=== PATIENT | male | born 1980 | race Caucasian/White ===

== ENCOUNTER 2024-06-25 15:56 | Emergency (ER) | payer OTHER ==
[2024-06-25 16:21] VITALS: BP 135/68; PULSE 68; RESP 18; TEMP 97.4; O2SAT 95
--- NOTE | 2024-06-25 17:50 | ERPHSYRPT ---
- History of Present Illness Time Seen by Provider: 06/25/24 17:20 Source: patient Exam Limitations: no limitations Patient Subjective Stated Complaint: PT WAS AT WORK AND WORKING ON A TREE WHEN HES ROSIE TOOK OFF WHILE HE WAS HOLDING A ROPE. CO PAIN TO BOTH HANDS Triage Nursing Assessment: PT ALERT, WALKED IN, RESP EASY SKIN W.Veronica.P. HAS LOAIZA TO HANDS WITH ABRASIONS TO BOTH WRISTS, NO ACTIVE BLEEDING Physician History: Pt states about 2 hours ago at home he was holding onto a rope and suffered a rope burn with resultant pain in his hands and left wrist. Hx Tetanus, Diphtheria Vaccination/Date Given: Yes Hx Influenza Vaccination/Date Given: No Hx Pneumococcal Vaccination/Date Given: No Immunizations Up to Date: Yes Travel Risk - International Travel Have you traveled outside of the country in past 3 weeks: No - Emerging Infectious Disease Are you exhibiting symptoms associated with any current EIDs: No - Review of Systems Musculoskeletal: Other (pain in hands and left wrist) - Past Medical History Pertinent Past Medical History: Yes Other Medical History: SEPSIS - Past Surgical History Musculoskeletal: Amputation Other Surgical History: BILAT JOE AMUTATION - Social History Smoking Status: Current every day smoker How long have you smoked: 1 Exposure to second hand smoke: No Drug Use: none - Social Determinants of Health Will the patient participate in the screening: Declined to provide - Nursing Vital Signs Nursing Vital Signs: Initial Vital Signs Temperature 97.4 F 06/25/24 16:20 Pulse Rate 68 06/25/24 16:20 Respiratory Rate 18 06/25/24 16:20 Blood Pressure 135/68 06/25/24 16:20 O2 Sat by Pulse Oximetry 95 06/25/24 16:20 Pain Scale Pain Intensity 7 - Physical Exam General Appearance: alert Shoulder Exam: normal ROM Elbow/Forearm Exam: normal ROM Wrist Exam: normal ROM, soft tissue tenderness (left wrist ) Hand Exam: soft tissue tenderness (both hands tender over palmar aspect with mild edema with decreased rom; abrasion to dorsal ulnar aspect of right hand and right wrist; good sensation of all digits of hands; abrasions to palmar surfaces of left hand.) Neuro/Tendon Exam: No sensory deficit Mental Status Exam: alert, cooperative SpO2 Interpretation: normal SpO2: 95 O2 Delivery: Room Air - Radiology Exams Right Hand X-ray Interpretation: Discussed w/ radiologist, No Fracture Left Hand X-ray Interpretation: Discussed w/ radiologist, No Fracture Left Wrist X-ray Interpretation: Discussed w/ radiologist, No Fracture Ordered Tests: Active Orders 24 hr Category Date Time Status HAND (MINIMUM 3 VIEWS) Stat Exams 06/25/24 17:51 Completed HAND (MINIMUM 3 VIEWS) Stat Exams 06/25/24 17:52 Completed WRIST (MIN 3 VIEWS) Stat Exams 06/25/24 17:51 Completed Medication Summary Discontinued Medications Generic Name Dose Route Start Last Admin Trade Name Martha PRN Reason Stop Dose Admin Hydrocodone Bitart/Acetaminophen 2 tab 06/25/24 17:52 06/25/24 17:56 Hydrocodone/Apap 5/325 1 Tab Tablet PO 06/25/24 17:53 2 tab STAT ONE Administration Hydrocodone Bitart/Acetaminophen Confirm 06/25/24 17:55 Hydrocodone/Apap 5/325 1 Tab Tablet Administered 06/25/24 17:56 Dose 2 tab .ROUTE .STK-MED ONE - Progress Progress: unchanged Counseled pt/family regarding: diagnosis, need for follow-up, rad results Medical Desision Making - Diagnostic Testing Diagnostic test were ordered, analyzed, and reviewed by me: Yes Radiological Interpretation: Discussed w/ radiologist - Departure Departure Disposition: AMA (ER staff stated pt walked out.) Clinical Impression: rope burn of palar aspect of hands, abrasions of right hand & right wrist Condition: Stable Critical Care Time: No Referrals: DOCTOR,NO FAMILY [Primary Care Provider] - Follow up/PCP as directed
[2024-06-25] MEDS ORDERED: NORCO 5/325 MG ONE (17:55)
[2024-06-25] MEDS: NORCO 5/325 MG PO ONE (17:56)
--- NOTE | 2024-06-25 19:30 | XRAY ---
Indication: Pain following injury. Comparison: None 3 view left hand obtained. No bony, articular, or soft tissue abnormalities.
--- NOTE | 2024-06-25 19:32 | XRAY ---
Indication: Pain following injury. Comparison: None 3 view right hand obtained. No bony, articular, or soft tissue abnormalities.
--- NOTE | 2024-06-25 19:32 | XRAY ---
Indication: Pain following injury. Comparison: None 3 view left wrist demonstrates incidental tiny subcortical cysts ulnar styloid. No other bony, articular, or soft tissue abnormalities.
== END 2024-06-25 21:30 | disposition left against medical advice (07) ==
LOC: ED 15:56
DX: M79.642 Pain in left hand (principal); M79.641 Pain in right hand; T23.052A Burn of unspecified degree of left palm, initial encounter; T23.051A Burn of unspecified degree of right palm, initial encounter
CPT/HCPCS: 73110; 73130; 99283; A9270-GY

== ENCOUNTER 2024-09-19 15:27 | Emergency (ER) | payer OTHER ==
--- NOTE | 2024-09-19 15:44 | ERPHSYRPT ---
- History of Present Illness Time Seen by Provider: 09/19/24 15:31 Source: patient Exam Limitations: no limitations Physician History: Pt states he has had constant sharp back pain since last night up to 10/10 in severity; denies fever, nausea, vomiting, abdominal pain, numbness, chest pain, shortness of air. Allergies/Adverse Reactions: No Known Drug Allergies Allergy (Verified 09/19/24 15:36) Home Medications: No Reportable Medications [No Reported Medications] 09/19/24 [History] Hx Tetanus, Diphtheria Vaccination/Date Given: Yes Hx Influenza Vaccination/Date Given: No Hx Pneumococcal Vaccination/Date Given: No Travel Risk - Emerging Infectious Disease Are you exhibiting symptoms associated with any current EIDs: No - Review of Systems Constitutional: No Fever Respiratory: No Dyspnea Cardiac: No Chest Pain Abdominal/Gastrointestinal: No Abdominal Pain, No Nausea, No Vomiting Musculoskeletal: Back Pain Neurological: No Headache - Past Medical History Pertinent Past Medical History: Yes Other Medical History: SEPSIS - Past Surgical History Musculoskeletal: Amputation Other Surgical History: BILAT JOE AMUTATION - Social History Smoking Status: Current every day smoker How long have you smoked: 1 Exposure to second hand smoke: No Drug Use: none - Social Determinants of Health Will the patient participate in the screening: Declined to provide - Nursing Vital Signs Nursing Vital Signs: Initial Vital Signs Temperature 96.7 F 09/19/24 15:37 Pulse Rate 51 L 09/19/24 15:37 Respiratory Rate 18 09/19/24 15:37 Blood Pressure 150/83 09/19/24 15:37 O2 Sat by Pulse Oximetry 94 L 09/19/24 15:37 Pain Scale Pain Intensity 10 - Physical Exam General Appearance: alert Eye Exam: eyes nml inspection Ears, Nose, Throat Exam: TMs normal, pharynx normal Neck Exam: normal inspection Respiratory Exam: lungs clear Cardiovascular Exam: normal heart sounds Gastrointestinal Exam: normal bowel sounds Back Exam: vertebral tenderness (mid thoracic to lower lumbar tenderness) Extremity Exam: other (bilateral forefoot amputee) Neurologic Exam: alert, cooperative Skin Exam: warm, dry - CT Exams Thoracic Spine CT Interpretation: Tele-radiologist Report (Mild degenerative changes of the thoracic spine. See rest of report.) Lumbar Spine CT Interpretation: Tele-radiologist Report (Mild degenerative change of the lumbar spine. No fractures. See rest of report.) Ordered Tests: Active Orders 24 hr Category Date Time Status LUMBAR SPINE W/O [CT] Stat Exams 09/19/24 15:39 Completed THORACIC SPINE W/O CONTRAST [CT] Stat Exams 09/19/24 15:39 Completed AMYLASE Stat Lab 09/19/24 16:11 Completed CBC W DIFF Stat Lab 09/19/24 16:11 Completed CMP Stat Lab 09/19/24 16:11 Completed LIPASE Stat Lab 09/19/24 16:11 Completed UA W/RFX UR CULTURE Stat Lab 09/19/24 16:24 Completed Medication Summary Discontinued Medications Generic Name Dose Route Start Last Admin Trade Name Freq PRN Reason Stop Dose Admin Hydrocodone Bitart/Acetaminophen 2 tab 09/19/24 15:40 09/19/24 16:15 Hydrocodone/Apap 5/325 1 Tab Tablet PO 09/19/24 15:41 2 tab STAT ONE Administration Hydrocodone Bitart/Acetaminophen Confirm 09/19/24 15:54 Hydrocodone/Apap 5/325 1 Tab Tablet Administered 09/19/24 15:55 Dose 2 tab .ROUTE .STK-MED ONE Hydrocodone Bitart/Acetaminophen 2 tab 09/19/24 17:24 Hydrocodone/Apap 5/325 1 Tab Tablet PO 09/19/24 17:25 SENT HOME W/ PATIENT ONE Hydrocodone Bitart/Acetaminophen Confirm 09/19/24 17:28 Hydrocodone/Apap 5/325 1 Tab Tablet Administered 09/19/24 17:29 Dose 2 tab .ROUTE .STK-MED ONE Lab/Rad Data: Laboratory Result Diagrams 09/19/24 16:11 09/19/24 16:11 Laboratory Results 09/19/24 09/19/24 09/19/24 Range/Units 16:24 16:11 16:11 WBC (4.23-9.07) x10^3/uL RBC (4.63-6.08) x10^6/uL Hgb (13.7-17.5) g/dL Hct (40.1-51.0) % MCV (79.0-92.2) fL MCH (25.7-32.2) pg MCHC (32.3-36.5) g/dL RDW (11.6-14.4) % Plt Count (163-337) x10^3/uL MPV (9.4-12.4) fL Gran % (34.0-67.9) % Immature Gran % (Auto) (0.001-0.429) % Nucleat RBC Rel Count (0.00-0.2) % Eos # (Auto) (0.04-0.54) x10^3/uL Immature Gran # (Auto) (0.001-0.031) x10^3u/L Absolute Lymphs (auto) (1.32-3.57) x10^3/uL Absolute Monos (auto) (0.30-0.82) x10^3/uL Absolute Nucleated RBC (0.00-0.012) x10^3u/L Lymphocytes % (21.8-53.1) % Monocytes % (5.3-12.2) % Eosinophils % (0.8-7.0) % Basophils % (0.2-1.2) % Absolute Granulocytes (1.78-5.38) x10^3/uL Basophils # (0.01-0.08) x10^3/uL Sodium 141 (135-145) mmol/L Potassium 4.0 (3.5-5.1) mmol/L Chloride 112 H (98-107) mmol/L Carbon Dioxide 24 (22-30) mmol/L Anion Gap 8.6 (5-15) MEQ/L BUN 11 (9-20) mg/dL Creatinine 1.21 (0.66-1.25) mg/dL Estimated GFR 74.8 ML/MIN Glucose 98 (74-106) mg/dL Calcium 9.8 (8.4-10.2) mg/dL Total Bilirubin 0.30 (0.2-1.3) mg/dL AST 25 (17-59) U/L ALT 21 (0-50) U/L Alkaline Phosphatase 59 (38-126) U/L Serum Total Protein 6.5 (6.3-8.2) g/dL Albumin 3.9 (3.5-5.0) g/dL Amylase 58 (30-110) U/L Lipase 36 (23-300) U/L Urine Color Yellow (Yellow) Urine Appearance Clear (Clear) Urine pH 6.5 (4.6-8.0) Ur Specific [place] 1.025 (1.005-1.030) Urine Protein Negative (Negative) Urine Glucose (UA) Negative (Negative) mg/dL Urine Ketones Trace A (Negative) Urine Blood Negative (Negative) Urine Nitrite Negative (Negative) Urine Bilirubin Negative (Negative) Urine Urobilinogen 1.0 A (0.2) mg/dL Ur Leukocyte Esterase Negative (Negative) U Hyaline Cast (Auto) NONE SEEN (0-2) /LPF Urine Microscopic RBC 0-2 (0-5) /HPF Urine Microscopic WBC 0-2 (0-5) /HPF Ur Epithelial Cells None Seen (None Seen) /HPF Urine Bacteria None Seen (None Seen) /HPF Urine Culture Reflexed NO (NO) 09/19/24 Range/Units 16:11 WBC 7.7 (4.23-9.07) x10^3/uL RBC 4.71 (4.63-6.08) x10^6/uL Hgb 14.8 (13.7-17.5) g/dL Hct 43.4 (40.1-51.0) % MCV 92.1 (79.0-92.2) fL MCH 31.4 (25.7-32.2) pg MCHC 34.1 (32.3-36.5) g/dL RDW 13.3 (11.6-14.4) % Plt Count 175 (163-337) x10^3/uL MPV 9.9 (9.4-12.4) fL Gran % 47.9 (34.0-67.9) % Immature Gran % (Auto) 0.3 (0.001-0.429) % Nucleat RBC Rel Count 0.0 (0.00-0.2) % Eos # (Auto) 0.47 (0.04-0.54) x10^3/uL Immature Gran # (Auto) 0.02 (0.001-0.031) x10^3u/L Absolute Lymphs (auto) 2.90 (1.32-3.57) x10^3/uL Absolute Monos (auto) 0.54 (0.30-0.82) x10^3/uL Absolute Nucleated RBC 0.00 (0.00-0.012) x10^3u/L Lymphocytes % 37.7 (21.8-53.1) % Monocytes % 7.0 (5.3-12.2) % Eosinophils % 6.1 (0.8-7.0) % Basophils % 1.0 (0.2-1.2) % Absolute Granulocytes 3.68 (1.78-5.38) x10^3/uL Basophils # 0.08 (0.01-0.08) x10^3/uL Sodium (135-145) mmol/L Potassium (3.5-5.1) mmol/L Chloride (98-107) mmol/L Carbon Dioxide (22-30) mmol/L Anion Gap (5-15) MEQ/L BUN (9-20) mg/dL Creatinine (0.66-1.25) mg/dL Estimated GFR ML/MIN Glucose (74-106) mg/dL Calcium (8.4-10.2) mg/dL Total Bilirubin (0.2-1.3) mg/dL AST (17-59) U/L ALT (0-50) U/L Alkaline Phosphatase (38-126) U/L Serum Total Protein (6.3-8.2) g/dL Albumin (3.5-5.0) g/dL Amylase (30-110) U/L Lipase (23-300) U/L Urine Color (Yellow) Urine Appearance (Clear) Urine pH (4.6-8.0) Ur Specific [place] (1.005-1.030) Urine Protein (Negative) Urine Glucose (UA) (Negative) mg/dL Urine Ketones (Negative) Urine Blood (Negative) Urine Nitrite (Negative) Urine Bilirubin (Negative) Urine Urobilinogen (0.2) mg/dL Ur Leukocyte Esterase (Negative) U Hyaline Cast (Auto) (0-2) /LPF Urine Microscopic RBC (0-5) /HPF Urine Microscopic WBC (0-5) /HPF Ur Epithelial Cells (None Seen) /HPF Urine Bacteria (None Seen) /HPF Urine Culture Reflexed (NO) - Progress Progress: unchanged Counseled pt/family regarding: lab results, diagnosis, need for follow-up, rad results Medical Desision Making - Diagnostic Testing Diagnostic test were ordered, analyzed, and reviewed by me: Yes Radiological Interpretation: Teleradiologist Report - Departure Departure Disposition: Home Clinical Impression: Back pain Condition: Stable Critical Care Time: No Referrals: DOCTOR,NO FAMILY [Primary Care Provider] - Follow up/PCP as directed Instructions: Low Back Pain (DC) Additional Instructions: Follow up with private doctor monaorrow. Forms: Work/School Release Form
[2024-09-19 15:46] VITALS: TEMP 96.7
[2024-09-19] MEDS ORDERED: NORCO 5/325 MG ONE ×2 (15:54→17:28)
[2024-09-19 16:14] LABS: Absolute Neutrophil Ct (ANC) 3.68 x10^3/uL (1.78-5.38); Basophil (Absolute #) 0.08 x10^3/uL (0.01-0.08); Eosinophil % 6.1 % (0.8-7.0); Eosinophil (Absolute #) 0.47 x10^3/uL (0.04-0.54); Hematocrit 43.4 % (40.1-51.0); Hemoglobin 14.8 g/dL (13.7-17.5); IMMATURE GRAN # 0.02 x10^3u/L (0.001-0.031); IMMATURE GRAN % 0.3 % (0.001-0.429); Lymphocytes % 37.7 % (21.8-53.1); Mean Cell Volume 92.1 fL (79.0-92.2); Mean Corpuscular Hemoglobin 31.4 pg (25.7-32.2); Mean Corpuscular Hgb Concent. 34.1 g/dL (32.3-36.5); Mean Platelet Volume 9.9 fL (9.4-12.4); Monocyte (Absolute #) 0.54 x10^3/uL (0.30-0.82); Neutrophil % 47.9 % (34.0-67.9); Platelet Count 175 x10^3/uL (163-337); Red Blood Count 4.71 x10^6/uL (4.63-6.08); Red Cell Distribution Width 13.3 % (11.6-14.4); White Blood Count 7.7 x10^3/uL (4.23-9.07)
[2024-09-19] MEDS: NORCO 5/325 MG PO ONE ×2 (16:15→17:32)
[2024-09-19 16:21] VITALS: BP 132/69; PULSE 68; RESP 19; O2SAT 92
[2024-09-19 16:28] LABS: ALBUMIN 3.9 g/dL (3.5-5.0); ANION GAP 8.6 MEQ/L (5-15); BILIRUBIN,TOTAL 0.3 mg/dL (0.2-1.3); Calcium 9.8 mg/dL (8.4-10.2); Creatinine 1 1.21 mg/dL (0.66-1.25); EST GLOMERULAR FILTRATION RATE 74.8 ML/MIN; Total Protein 6.5 g/dL (6.3-8.2)
[2024-09-19 16:36] LABS: Appearance Clear (Clear); Bacteria None Seen /HPF (None Seen); Bilirubin Negative (Negative); Blood Negative (Negative); Epithelial Cells None Seen /HPF (None Seen); Glucose, Urine Negative (Negative); Hyaline Casts NONE SEEN /LPF (0-2); Ketones Trace (Negative); Leukocyte Esterase Negative (Negative); Nitrite Negative (Negative); Ph 6.5 (4.6-8.0); Protein,Urine Dip Negative (Negative); RBC 0-2 /HPF (0-5); Specific Gravity 1.025 (1.005-1.030); WBC 0-2 /HPF (0-5)
[2024-09-19 16:37] LABS: AMYLASE 58 U/L (30-110); LIPASE 36 U/L (23-300)
--- NOTE | 2024-09-19 16:55 | XRAY ---
CLINICAL HISTORY: pain COMPARISON: None. TECHNIQUE: Multiple axial images of CT thoracic spine without contrast were submitted in bone and soft tissue windows. One of the following dose reduction techniques was utilized for this exam: Automated exposure control, adjustment of the mA and/or kV according to patient size, and use of iterative reconstruction. FINDINGS: Vertebrae: Mild degenerative change of the thoracic spine with multiple Schmorl's nodes. Normal alignment of the thoracic vertebrae. No fractures, lytic or sclerotic lesions. Normal bone density without evidence of osteopenia or osteoporosis. Intervertebral Discs: Multilevel mild degenerative disc disease Normal height and density of the intervertebral discs. Spinal Canal and Neural Foramina: The spinal canal is of normal caliber with no evidence of spinal stenosis. Neural foramina are patent bilaterally at all levels. No evidence of nerve root compression. Facet Joints: Normal appearance of the facet joints. No evidence of facet arthropathy or significant degenerative changes. Soft Tissues: Normal appearance of the paraspinal soft tissues. No abnormal masses, fluid collections, or signs of inflammation. Cuts through the lungs showed multiple subpleural cysts predominantly in the upper lobe. Bilateral apical linear fibrotic subpleural changes. A calcified lymph node was noted in the left hilum. A calcified nodule was noted in the left lower lobe as well. Linear atelectasis was noted in both lower lobes. Multiple small nonobstructive stones were noted in the right kidney. IMPRESSION: 1. Mild degenerative change of the thoracic spine with multiple Schmorl's nodes with mild degenerative disc disease. 2. Multiple small nonobstructive stones were noted in the right kidney. Electronically Signed by: Sofia Michelle MD. (09/19/2024 16:51:17 EST)
--- NOTE | 2024-09-19 17:08 | XRAY ---
CLINICAL HISTORY: pain COMPARISON: None. TECHNIQUE: CT non-contrast scan of lumbar spine done. Axial images obtained with reformatted coronal and sagittal images and submitted for interpretation. One of the following dose reduction techniques were utilized for this exam: Automated exposure control, adjustment of the mA and/or kV according to patient size, use of iterative reconstruction. FINDINGS: Vertebrae: Normal alignment of the lumbar vertebrae. Degenerative change of the lumbar spine with anterior osteophyte formation. No fractures, lytic or sclerotic lesions. Normal bone density without evidence of osteopenia or osteoporosis. Intervertebral Discs: Multilevel mild degenerative disc disease more toward the right neural foramina at L3-4 and towards the left neural foramina opposite L4-5 with mild pressure upon the exiting nerve root. Spinal Canal and Neural Foramina: Spinal canal is of normal caliber with no evidence of spinal stenosis. Neural foramina are patent bilaterally at all levels. No evidence of nerve root compression. Facet Joints: Normal appearance of the facet joints. No evidence of facet arthropathy or significant degenerative changes. Soft Tissues: Normal appearance of the paraspinal soft tissues. No abnormal masses, fluid collections, or signs of inflammation. IMPRESSION: 1. Mild degenerative change of the lumbar spine with anterior osteophyte formation with multilevel mild degenerative disc disease more toward the right neural foramina at L3-4 and towards the left neural foramina opposite L4-5 touching the exiting nerve root. 2. No fractures, lytic or sclerotic lesions. Electronically Signed by: Sofia Michelle MD. (09/19/2024 17:03:47 EST)
== END 2024-09-19 17:43 | disposition home or self-care (01) ==
LOC: ED 15:27
DX: M54.9 Dorsalgia, unspecified (principal)
CPT/HCPCS: 36415; 72128; 72131; 80053; 81001; 82150; 83690; 85025; 99283; 99284; A9270-GY

== ENCOUNTER 2024-10-25 11:46 | Emergency (ER) | payer OTHER ==
[2024-10-25 12:13] VITALS: TEMP 98.1
--- NOTE | 2024-10-25 12:28 | ERPHSYRPT ---
- History of Present Illness Time Seen by Provider: 10/25/24 12:15 Source: patient Exam Limitations: no limitations Patient Subjective Stated Complaint: C/O upper back pain inbetween his shoulder blades for 2 days. Indicates he was over in radiology prior to ER visit for MRI of lumbar spine but this pain is not in the lumbar region of his back. Triage Nursing Assessment: Patient ambulated back to ER. Patient is alert and oriented. No SOB. Wishes not take off his shirt and place a gown on at this time. Skin tone normal. Timing/Duration: today Severity: mild Modifying Factors: Improves With: movement Associated Symptoms: denies symptoms Allergies/Adverse Reactions: No Known Drug Allergies Allergy (Verified 10/25/24 12:05) Home Medications: Cyclobenzaprine HCl 10 mg [Cyclobenzaprine 10 MG] 10 mg PO TID PRN 10/25/24 [History] Hx Tetanus, Diphtheria Vaccination/Date Given: Yes Hx Influenza Vaccination/Date Given: No Hx Pneumococcal Vaccination/Date Given: No Immunizations Up to Date: Yes Travel Risk - International Travel Have you traveled outside of the country in past 3 weeks: No - Emerging Infectious Disease Are you exhibiting symptoms associated with any current EIDs: No - Review of Systems Constitutional: No Symptoms Eyes: No Symptoms Ears, Nose, & Throat: No Symptoms Respiratory: No Symptoms Cardiac: No Symptoms Abdominal/Gastrointestinal: No Symptoms Genitourinary Symptoms: No Symptoms Musculoskeletal: No Symptoms - Past Medical History Pertinent Past Medical History: Yes Neurological History: No Pertinent History ENT History: No Pertinent History Cardiac History: No Pertinent History Respiratory History: No Pertinent History Endocrine Medical History: No Pertinent History Musculoskeletal History: No Pertinent History History: Renal Disease Other Medical History: SEPSIS - Past Surgical History Past Surgical History: Yes Cardiac: Other Musculoskeletal: Amputation Other Surgical History: BILAT FOOT (Metatarsal area) AMPUTATION - Social History Smoking Status: Current every day smoker How long have you smoked: 1 Exposure to second hand smoke: No Drug Use: none - Social Determinants of Health Will the patient participate in the screening: Declined to provide - Nursing Vital Signs Nursing Vital Signs: Initial Vital Signs Temperature 98.1 F 10/25/24 12:00 Pulse Rate 55 L 10/25/24 12:00 Respiratory Rate 16 10/25/24 12:00 Blood Pressure 125/60 10/25/24 12:00 O2 Sat by Pulse Oximetry 96 10/25/24 12:00 Pain Scale Pain Intensity 4 - Physical Exam General Appearance: no apparent distress Eye Exam: PERRL/EOMI Ears, Nose, Throat Exam: normal ENT inspection Neck Exam: normal inspection Respiratory Exam: normal breath sounds Cardiovascular Exam: regular rate/rhythm Back Exam: muscle spasm (Patient has diffuse paravertebral muscle spasm in the cervical and thoracic region, limiting his ROM ) SpO2: 96 Ordered Tests: Active Orders 24 hr Category Date Time Status CERVICAL SPINE WO CONTRAST [CT] Stat Exams 10/25/24 12:23 Completed CHEST WITH CONTRAST [CT] Stat Exams 10/25/24 12:23 Completed RECONSTRUCTION [CT] Stat Exams 10/25/24 12:23 Completed Medication Summary Discontinued Medications Generic Name Dose Route Start Last Admin Trade Name Martha PRN Reason Stop Dose Admin Diazepam 10 mg 10/25/24 12:28 10/25/24 12:59 Diazepam 10 Mg/2 Ml Disp.Syringe IM 10/25/24 12:29 10 mg STAT ONE Administration Diazepam Confirm 10/25/24 12:56 Diazepam 10 Mg/2 Ml Disp.Syringe Administered 10/25/24 12:57 Dose 10 mg .ROUTE .STK-MED ONE Ketorolac Tromethamine 60 mg 10/25/24 12:28 10/25/24 12:58 Ketorolac Tromethamine 30 Mg/Ml Inj IM 10/25/24 12:29 60 mg STAT ONE Administration Ketorolac Tromethamine Confirm 10/25/24 12:56 Ketorolac Tromethamine 30 Mg/Ml Inj Administered 10/25/24 12:57 Dose 60 mg .ROUTE .STK-MED ONE - Progress Progress Note: . . . . Patient was seen and evaluated for cervical and thoracic pain status post his MRI of the lumbar spine he states this has been getting worse so he decided to come in for evaluation he denies any numbness or tingling in his upper extremities or lower extremities is any loss of bowel or bladder function. CT scan of the cervical spine thoracic spine and chest were obtained these reveal no acute findings. She was updated with his results and informed of the need for follow-up with his primary care provider. He will be discharged home with [facility], he is to apply ice and heat packs to the affected area.. 10/25/24 15:07 Medical Desision Making - Discussion of managment Agreed on:: need for follow-up Will see patient: In office - Departure Departure Disposition: Home Clinical Impression: Back pain, Cervical paraspinal muscle spasm, Spasm of thoracic back muscle Condition: Good Critical Care Time: No Referrals: CHERYL PIMENTEL [Primary Care Provider] - Follow up/PCP as directed Prescriptions: Chlorzoxazone 500 mg PO BID PRN #20 tablet
[2024-10-25] MEDS ORDERED: VALIUM 10 MG/2 ML SYRINGE ONE (12:56)
[2024-10-25] MEDS ORDERED: TORAdol 30 mg Injection ONE (12:56)
[2024-10-25] MEDS: TORAdol 30 mg Injection IM ONE (12:58)
[2024-10-25] MEDS: VALIUM 10 MG/2 ML SYRINGE IM ONE (12:59)
--- NOTE | 2024-10-25 14:39 | XRAY ---
Indication: Neck pain. Multiple contiguous axial images obtained through the chest using 80 cc Isovue 370 contrast as ordered. Comparison: None Lungs demonstrates mild biapical subpleural cystic changes and mild bilateral dependent atelectasis. No suspicious pulmonary mass/nodule, infiltrate, effusion, or pneumothorax. Heart not enlarged. Aorta is normal in course and caliber. Small left hilar calcified nodes. No pathologic mediastinal/hilar lymphadenopathy. Bony thorax intact with tiny multilevel thoracic Schmorl nodes. Limited upper abdomen demonstrates a few tiny splenic calcified granulomas and nonobstructing right renal punctate calculus. Impression: Chronic findings including biapical subpleural cystic changes, multilevel thoracic Schmorl nodes, nonobstructing right renal punctate calculus, and old granulomatous disease. Remaining CT chest with contrast exam is normal.
--- NOTE | 2024-10-25 14:41 | XRAY ---
Indication: Neck pain. Multiple contiguous axial images obtained through the cervical spine. Sagittal and coronal reformatted images obtained. Comparison: None Axial images negative for acute fracture, suspicious bony lesions, or spinal canal stenosis. Minimal broad-based C5-C6 disc bulge. Facets are symmetric. Sagittal and coronal reformatted images demonstrate normal alignment. Minimal C5-C6 disc space narrowing. No acute compression fracture, sublocation, or jumped facet. Normal appearing craniocervical junction. Base of brain unremarkable. CT chest reported separately. Impression: Minimal C5-C6 degenerative disc disease. Remaining CT cervical spine is normal
--- NOTE | 2024-10-25 14:43 | XRAY ---
Indication: Neck pain. Sagittal, coronal, and axial reformatted images thoracic spine obtained using raw data from same day CT chest exam. Comparison: September 19, 2024 Axial images negative for acute fracture, suspicious bony lesions, or spinal canal stenosis. Stable tiny multilevel Schmorl nodes present sagittal and coronal reformatted images again demonstrates minimal dextroscoliosis. Vertebral body heights/disc spaces maintained. CT chest reported separately. Impression: No change compared ER CT exam one month ago. Again incidental tiny multilevel Schmorl nodes and minimal dextroscoliosis. No new/acute findings.
[2024-10-25 15:04] VITALS: BP 123/59; PULSE 62; RESP 20
[2024-10-25 15:11] VITALS: O2SAT 96
== END 2024-10-25 15:20 | disposition home or self-care (01) ==
LOC: ED 11:46
DX: M62.830 Muscle spasm of back (principal); M62.838 Other muscle spasm; M54.6 Pain in thoracic spine; M54.2 Cervicalgia; Z79.899 Other long term (current) drug therapy; Z72.0 Tobacco use
CPT/HCPCS: 71260; 72125; 76376; 96372; 99284; 99285; J1885; J3360

== ENCOUNTER 2024-11-23 16:25 | Emergency (ER) | payer OTHER ==
[2024-11-23 16:45] VITALS: TEMP 98.3
[2024-11-23] MEDS ORDERED: TORAdol 30 mg Injection ONE (16:49)
[2024-11-23] MEDS ORDERED: Compazine 10 MG/2 ML ONE (16:49)
[2024-11-23] MEDS ORDERED: Rocephin 1000 MG INJ ONE (16:49)
[2024-11-23] MEDS ORDERED: Sodium Chloride 0.9% 1000 ML 1,000 ML ONE (16:50)
[2024-11-23] MEDS: Rocephin 1000 MG INJ IM ONE (16:56)
[2024-11-23] MEDS: TORAdol 30 mg Injection IV ONE (16:57)
[2024-11-23] MEDS: Sodium Chloride 0.9% 1000 ML 1,000 ML IV STA (16:57)
[2024-11-23] MEDS: Compazine 10 MG/2 ML IV ONE (16:57)
[2024-11-23] MEDS ORDERED: TYLENOL 325 MG ONE (17:01)
[2024-11-23] MEDS: TYLENOL 325 MG PO ONE (17:02)
--- NOTE | 2024-11-23 17:15 | XRAY ---
Indication: Cough. Comparison: CT chest October 25, 2024 Portable chest remains hyperinflated and clear. Heart not enlarged again with small left hilar calcified node. Bony thorax intact. No new/acute findings.
[2024-11-23 17:22] VITALS: PULSE 57; RESP 16; O2SAT 98
[2024-11-23 17:25] LABS: Absolute Neutrophil Ct (ANC) 8.27 x10^3/uL (1.78-5.38); BASOPHIL % 0.4 % (0.2-1.2); Basophil (Absolute #) 0.05 x10^3/uL (0.01-0.08); Eosinophil % 2.8 % (0.8-7.0); Eosinophil (Absolute #) 0.35 x10^3/uL (0.04-0.54); Hematocrit 39.4 % (40.1-51.0); Hemoglobin 13.7 g/dL (13.7-17.5); IMMATURE GRAN # 0.04 x10^3u/L (0.001-0.031); IMMATURE GRAN % 0.3 % (0.001-0.429); Lymphocyte (Absolute #) 2.48 x10^3/uL (1.32-3.57); Lymphocytes % 20.1 % (21.8-53.1); Mean Cell Volume 90.6 fL (79.0-92.2); Mean Corpuscular Hemoglobin 31.5 pg (25.7-32.2); Mean Corpuscular Hgb Concent. 34.8 g/dL (32.3-36.5); Mean Platelet Volume 10.3 fL (9.4-12.4); Monocyte (Absolute #) 1.13 x10^3/uL (0.30-0.82); Monocytes % 9.2 % (5.3-12.2); Neutrophil % 67.2 % (34.0-67.9); Platelet Count 249 x10^3/uL (163-337); Red Blood Count 4.35 x10^6/uL (4.63-6.08); Red Cell Distribution Width 13.2 % (11.6-14.4); White Blood Count 12.3 x10^3/uL (4.23-9.07)
--- NOTE | 2024-11-23 17:33 | ERPHSYRPT ---
- History of Present Illness Time Seen by Provider: 11/23/24 17:31 Source: patient Exam Limitations: no limitations Patient Subjective Stated Complaint: C/O headache, body aches since 11/15/24 Triage Nursing Assessment: Patient ambulated back to ER without difficulties wearing a mask. He is alert and oriented. No SOB. Dry cough noted at times. Skin tone normal. SWETHA FELIPE. Physician History: 44-year-old male presents to our ED for evaluation of sinus pain, thick mucus drainage from nose, ear pressure, headache subjective fever body aches. Symptoms have been ongoing for approximately 2 to 3 days. Patient states sympt oms are getting progressively worse. No trauma. Slight nausea. Patient also has a dry nonproductive cough. Symptoms are constant. Symptoms are mild to moderate in intensity. No specific worsening improving factors. Patient voices no other complaints or concerns at this time. Portions of this note were created with voice recognition technology. There may be grammatical, spelling, punctuation or sound alike errors Timing/Duration: day(s) (2 days) Severity: moderate Modifying Factors: Improves With: nothing Associated Symptoms: denies symptoms Allergies/Adverse Reactions: No Known Drug Allergies Allergy (Verified 11/23/24 16:31) Hx Tetanus, Diphtheria Vaccination/Date Given: Yes Hx Influenza Vaccination/Date Given: No Hx Pneumococcal Vaccination/Date Given: No Immunizations Up to Date: Yes Travel Risk - International Travel Have you traveled outside of the country in past 3 weeks: No - Emerging Infectious Disease Are you exhibiting symptoms associated with any current EIDs: Yes Symptoms: Cough: New Onset, Fever, Headaches/Body Aches/ - Review of Systems Constitutional: No Symptoms, No Fever, No Chills Eyes: No Symptoms Ears, Nose, & Throat: No Symptoms Respiratory: No Symptoms, No Cough, No Dyspnea Cardiac: No Symptoms, No Chest Pain, No Edema, No Syncope Abdominal/Gastrointestinal: No Symptoms, No Abdominal Pain, No Nausea, No Vomiting, No Diarrhea Genitourinary Symptoms: No Symptoms, No Dysuria Musculoskeletal: No Symptoms, No Back Pain, No Neck Pain Skin: No Symptoms, No Rash Neurological: No Symptoms, No Dizziness, No Focal Weakness, No Sensory Changes Psychological: No Symptoms Endocrine: No Symptoms Hematologic/Lymphatic: No Symptoms Immunological/Allergic: No Symptoms All Other Systems: Reviewed and Negative - Past Medical History Pertinent Past Medical History: Yes Neurological History: No Pertinent History ENT History: No Pertinent History Cardiac History: No Pertinent History Respiratory History: No Pertinent History Endocrine Medical History: No Pertinent History Musculoskeletal History: No Pertinent History History: Renal Disease Other Medical History: SEPSIS - Past Surgical History Past Surgical History: Yes Cardiac: Other Musculoskeletal: Amputation Other Surgical History: BILAT FOOT (Metatarsal area) AMPUTATION - Social History Smoking Status: Current every day smoker Exposure to second hand smoke: No Drug Use: none - Social Determinants of Health Will the patient participate in the screening: Declined to provide - Nursing Vital Signs Nursing Vital Signs: Initial Vital Signs Temperature 98.3 F 11/23/24 16:33 Pulse Rate 76 11/23/24 16:33 Respiratory Rate 18 11/23/24 16:33 Blood Pressure 167/84 11/23/24 16:33 O2 Sat by Pulse Oximetry 97 11/23/24 16:33 Pain Scale Pain Intensity 10 - Physical Exam General Appearance: no apparent distress, alert Eye Exam: PERRL/EOMI, eyes nml inspection Ears, Nose, Throat Exam: normal ENT inspection, pharynx normal (Sinus congestion rhinorrhea), moist mucous membranes, other (Tenderness to palpation at both frontal and maxillary sinuses) Neck Exam: normal inspection, non-tender, supple, full range of motion Respiratory Exam: normal breath sounds, lungs clear, No respiratory distress Cardiovascular Exam: regular rate/rhythm, normal heart sounds, normal peripheral pulses Gastrointestinal/Abdomen Exam: soft, normal bowel sounds, No tenderness, No mass Back Exam: normal inspection, normal range of motion, No CVA tenderness, No vertebral tenderness Extremity Exam: normal inspection, normal range of motion, pelvis stable Neurologic Exam: alert, oriented x 3, cooperative, normal mood/affect, nml cerebellar function, nml station & gait, sensation nml, No motor deficits Skin Exam: normal color, warm, dry, No rash Lymphatic Exam: No adenopathy SpO2 Interpretation: normal SpO2: 98 O2 Delivery: Room Air - Course Nursing assessment & vital signs reviewed: Yes - Radiology Exams Chest X-ray Interpretation: Teleradiologist Report (No acute findings) Ordered Tests: Active Orders 24 hr Category Date Time Status Software Installation Engineer STAT Care 11/23/24 16:45 Active IV Insertion STAT Care 11/23/24 16:43 Active Pulse Oximetry (ED) STAT Care 11/23/24 16:43 Active CHEST 1 VIEW (PORTABLE) Stat Exams 11/23/24 16:45 Completed CBC W DIFF Stat Lab 11/23/24 17:00 Completed CMP Stat Lab 11/23/24 17:00 Completed Medication Summary Discontinued Medications Generic Name Dose Route Start Last Admin Trade Name Martha PRN Reason Stop Dose Admin Acetaminophen 975 mg 11/23/24 16:46 11/23/24 17:02 Acetaminophen 325 Mg Tablet PO 11/23/24 16:47 975 mg STAT ONE Administration Acetaminophen Confirm 11/23/24 17:01 Acetaminophen 325 Mg Tablet Administered 11/23/24 17:02 Dose 975 mg .ROUTE .STK-MED ONE Amoxicillin/Clavulanate Potassium 875 mg 11/23/24 18:00 Amox Tr/Potassium Clavulanate 875 Mg Tablet PO 11/23/24 18:01 STAT ONE Ceftriaxone Sodium 1,000 mg 11/23/24 16:43 11/23/24 16:56 Ceftriaxone Sodium 1000 Mg Inj Vial IM 11/23/24 16:44 1,000 mg STAT ONE Administration Ceftriaxone Sodium Confirm 11/23/24 16:49 Ceftriaxone Sodium 1000 Mg Inj Vial Administered 11/23/24 16:50 Dose 1,000 mg .ROUTE .STK-MED ONE Sodium Chloride 1,000 mls @ 999 mls/hr 11/23/24 16:43 11/23/24 16:57 Sodium Chloride 0.9% 1000 Ml IV 11/23/24 17:43 999 mls/hr .Q1H1M STA Administration Sodium Chloride Confirm 11/23/24 16:50 Sodium Chloride 0.9% 1000 Ml Administered 11/23/24 16:51 Dose 1,000 mls @ ud .ROUTE .STK-MED ONE Ketorolac Tromethamine 30 mg 11/23/24 16:46 11/23/24 16:57 Ketorolac Tromethamine 30 Mg/Ml Inj IV 11/23/24 16:47 30 mg STAT ONE Administration Ketorolac Tromethamine Confirm 11/23/24 16:49 Ketorolac Tromethamine 30 Mg/Ml Inj Administered 11/23/24 16:50 Dose 30 mg .ROUTE .STK-MED ONE Prednisone 60 mg 11/23/24 17:59 Prednisone 20 Mg Tablet PO 11/23/24 18:00 STAT ONE Prochlorperazine Edisylate 10 mg 11/23/24 16:46 11/23/24 16:57 Prochlorperazine Edisylate 10 Mg/2 Ml Vial IV 11/23/24 16:47 10 mg STAT ONE Administration Prochlorperazine Edisylate Confirm 11/23/24 16:49 Prochlorperazine Edisylate 10 Mg/2 Ml Vial Administered 11/23/24 16:50 Dose 10 mg .ROUTE .STK-MED ONE Lab/Rad Data: Laboratory Result Diagrams 11/23/24 17:00 11/23/24 17:00 Laboratory Results 11/23/24 11/23/24 11/23/24 Range/Units 17:05 17:00 17:00 WBC 12.3 H (4.23-9.07) x10^3/uL RBC 4.35 L (4.63-6.08) x10^6/uL Hgb 13.7 (13.7-17.5) g/dL Hct 39.4 L (40.1-51.0) % MCV 90.6 (79.0-92.2) fL MCH 31.5 (25.7-32.2) pg MCHC 34.8 (32.3-36.5) g/dL RDW 13.2 (11.6-14.4) % Plt Count 249 (163-337) x10^3/uL MPV 10.3 (9.4-12.4) fL Gran % 67.2 (34.0-67.9) % Immature Gran % (Auto) 0.3 (0.001-0.429) % Nucleat RBC Rel Count 0.0 (0.00-0.2) % Eos # (Auto) 0.35 (0.04-0.54) x10^3/uL Immature Gran # (Auto) 0.04 H (0.001-0.031) x10^3u/L Absolute Lymphs (auto) 2.48 (1.32-3.57) x10^3/uL Absolute Monos (auto) 1.13 H (0.30-0.82) x10^3/uL Absolute Nucleated RBC 0.00 (0.00-0.012) x10^3u/L Lymphocytes % 20.1 L (21.8-53.1) % Monocytes % 9.2 (5.3-12.2) % Eosinophils % 2.8 (0.8-7.0) % Basophils % 0.4 (0.2-1.2) % Absolute Granulocytes 8.27 H (1.78-5.38) x10^3/uL Basophils # 0.05 (0.01-0.08) x10^3/uL Sodium 143 (135-145) mmol/L Potassium 3.5 (3.5-5.1) mmol/L Chloride 111 H (98-107) mmol/L Carbon Dioxide 22 (22-30) mmol/L Anion Gap 13.4 (5-15) MEQ/L BUN 8 L (9-20) mg/dL Creatinine 0.91 (0.66-1.25) mg/dL Estimated GFR 105.3 ML/MIN Glucose 95 (74-106) mg/dL Calcium 8.8 (8.4-10.2) mg/dL Total Bilirubin 0.50 (0.2-1.3) mg/dL AST 29 (17-59) U/L ALT 21 (0-50) U/L Alkaline Phosphatase 68 (38-126) U/L Serum Total Protein 6.8 (6.3-8.2) g/dL Albumin 3.8 (3.5-5.0) g/dL Influenza Type A Ag NEGATIVE (NEGATIVE) Influenza Type B Ag NEGATIVE (NEGATIVE) RSV (PCR) NEGATIVE (NEGATIVE) SARS-CoV-2 (PCR) NEGATIVE (NEGATIVE) - Progress Progress: improved Progress Note: 44-year-old male presents to our emergency department for evaluation of viral- like illness. Workup nonremarkable. RSV flu COVID negative. Chest x-ray negative as well. In light of patient's sinus pressure and drainage patient received a dose of prednisone and Augmentin. Patient received Toradol and Compazine for headache. Patient reassessed. Symptoms significantly improved. Patient states he is ready for discharge. Will discharge home at this time. A prescription for prednisone and Augmentin will be forwarded to patient's pharmacy. Patient agrees to follow-up with his primary care doctor within 48 hours for reevaluation. Portions of this note were created with voice recognition technology. There may be grammatical, spelling, punctuation or sound alike errors Complexity of problem addressed is moderate acute complicated. No critical care time. Complex of data reviewed and analyzed is moderate. Test ordered chest reviewed results analyzed and correlated clinically with history and physical exam. Risk of complication and or risk of morbidity/mortality of patient management is low. Vital stable. Time spent to discharge patient is approximately 10 minutes. Plan of care established for shared decision making. No social determinants of health present to impede follow-up. Portions of this note were created with voice recognition technology. There may be grammatical, spelling, punctuation or sound alike errors 11/23/24 18:06 Counseled pt/family regarding: lab results, diagnosis, need for follow-up, rad results - Departure Departure Disposition: Home Clinical Impression: Sinusitis, Viral syndrome, URI (upper respiratory infection) Condition: Stable Critical Care Time: No Referrals: CHERYL PIMENTEL [Primary Care Provider] - Follow up/PCP as directed Additional Instructions: Discharge/Care Plan TALA OSUNA was seen on 11/23/24 in the Emergency Room. The patient was counseled regarding Diagnosis,Lab results, Imaging studies, need for follow up and when to return to the Emergency Room. Prescriptions given: Discharge Note I have spoken with the patient and/or caregivers. I have explained the patient's condition, diagnosis and treatment plan based on the information available to me at this time. I have answered the patient's and/or caregiver's questions and addressed any concerns. The patient and/or caregivers have as good understanding of the patient's diagnosis, condition and treatment plan as can be expected at this point. The vital signs have been stable. The patient's condition is stable and appropriate for discharge from the emergency department. The patient will pursue further outpatient evaluation with the primary care physician or other designated or consulting physician as outlined in the discharge instructions. The patient and/or caregivers are agreeable to this plan of care and follow-up instructions have been explained in detail. The patient and/or caregivers have received these instruction. The patient/and or caregivers are aware that any significant change in condition or worsening of symptoms should prompt an immediate return to this or the closest emergency department or call 911. Prescriptions: Amox Tr/Potass Clav. 875 mg [Augmentin 875-125 Tablet] 875 mg PO BID 7 Days #14 tablet Prednisone 10 mg [Deltasone 10 mg] 40 mg PO DAILY 3 Days #12 tablet
[2024-11-23 17:39] LABS: ALBUMIN 3.8 g/dL (3.5-5.0); ANION GAP 13.4 MEQ/L (5-15); BILIRUBIN,TOTAL 0.5 mg/dL (0.2-1.3); Calcium 8.8 mg/dL (8.4-10.2); Creatinine 1 0.91 mg/dL (0.66-1.25); EST GLOMERULAR FILTRATION RATE 105.3 ML/MIN; Potassium 3.5 mmol/L (3.5-5.1); Total Protein 6.8 g/dL (6.3-8.2)
[2024-11-23 18:02] VITALS: BP 117/63
[2024-11-23 18:02] LABS: INFLUENZA A NEGATIVE (NEGATIVE); INFLUENZA B NEGATIVE (NEGATIVE); RESPIRATORY SYNCTIAL VIRUS NEGATIVE (NEGATIVE); SARS-CoV-2 Xpert Express NEGATIVE (NEGATIVE)
[2024-11-23] MEDS ORDERED: DELTASONE 20 MG ONE (18:22)
[2024-11-23] MEDS ORDERED: Augmentin 875-125 Tablet ONE (18:22)
[2024-11-23] MEDS: Augmentin 875-125 Tablet PO ONE (18:24)
[2024-11-23] MEDS: DELTASONE 20 MG PO ONE (18:24)
== END 2024-11-23 18:30 | disposition home or self-care (01) ==
LOC: ED 16:25
DX: J32.9 Chronic sinusitis, unspecified (principal); J06.9 Acute upper respiratory infection, unspecified; B34.9 Viral infection, unspecified; R51.9 Headache, unspecified; M79.10 Myalgia, unspecified site; R05.9 Cough, unspecified; Z79.52 Long term (current) use of systemic steroids; Z79.899 Other long term (current) drug therapy; Z72.0 Tobacco use
CPT/HCPCS: 0241U; 36415; 71045; 80053; 85025; 93041; 94760; 96361; 96372; 96374; 96375; 99284; J0696; J1885; A9270-GY